=== PATIENT | male | born 1955 | race Caucasian/White ===

== ENCOUNTER → 2017-04-13 | Outpatient (CLI) | payer OTHER ==
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
== END | disposition home or self-care (01) ==
LOC: MRI 10:25
DX: M51.16 Intervertebral disc disorders with radiculopathy, lumbar region (principal); Y92.410 Unspecified street and highway as the place of occurrence of the external cause
CPT/HCPCS: 72148